=== PATIENT | female | born 1990 | race Caucasian/White ===

== ENCOUNTER → 2017-02-23 | Outpatient (CLI) | payer BC ==
--- NOTE | 2017-02-23 21:44 | REP ---
Clinical: Anatomical evaluation. Comparison: None . Findings: Examination demonstrates a single live intrauterine in variable presentation. motion is identified by technologist. Placenta is noted anteriorly and grade zero without evidence for placenta previa or abruption. Placental tip 2.6 cm from the internal os. A synechia noted along the right side of the uterus. Amniotic fluid volume is normal. Cervix measures 5.5 cm in length and appears closed. No evidence for nuchal cord. Gestational age by LMP 20 weeks 0 days with DAVIDA 07/13/2017 . Gestational age by current measurements 20 weeks 0 days with DAVIDA 07/13/2017 . FHR equals 147 beats per minute. BPD 4.5 cm 19 weeks 4 days HC 17.1 cm 19 weeks 5-day AC 15.2 cm 20 weeks 3 days FL 3.2 cm 20 weeks 0 days HL 3.1 cm 20 weeks 2 days HC/AC ratio 1.13 Estimated weight 335 grams ( 52nd percentile). Anatomical assessment demonstrates normal structures including cranium, choroid plexus, cavum, cerebellum/posterior fossa, diaphragm, stomach, cord insertion/three-vessel cord, kidneys/bladder, spine, and upper extremities. Limited evaluation of the facial features, heart/ventricular outflow tracts, and lower extremities noted along with mild renal pelviectasis which is within normal range. Impression: 1. Single live intrauterine in variable presentation demonstrating appropriate interval growth. 2. Anatomical limitations as described above warrant reevaluation and follow-up. 3. A synechia is identified along the right side of the uterus. Signed by Cam Khalil MD 02/23/2017 09:35 P
== END ==
LOC: M RAD 15:56
PROVIDERS: ATTEND Nurse Practitioner Women's Health
DX: Z36 Encounter for antenatal screening of mother (principal); Z3A.20 20 weeks gestation of pregnancy

== ENCOUNTER → 2017-03-24 | Outpatient (CLI) | payer BC ==
--- NOTE | 2017-03-24 16:46 | REP ---
Clinical: Anatomical evaluation. Comparison: 02/23/2017 . Findings: Examination demonstrates a single live intrauterine in breech presentation. motion is identified by technologist. Placenta is noted show anteriorly and grade zero without evidence for placenta previa or abruption. Amniotic fluid volume is normal. A synechia along the right side of the uterus is again noted. Cervix measures 4.3 cm in length and appears closed. Nuchal cord cannot be excluded. Gestational age by LMP 24 weeks 1 day with DAVIDA 07/13/2017 . Gestational age by current measurements 24 weeks 1 day with DAVIDA 07/13/2017 . FHR equals 139 beats per minute. Estimated weight 718 grams ( 60th percentile). Anatomical assessment demonstrates normal structures including cranium, choroid plexus, cavum, cerebellum/posterior fossa, facial features, lungs, diaphragm, stomach, cord insertion/three-vessel cord, kidneys/bladder, and extremities. Limited evaluation of the heart/ventricular outflow tracts and spine noted. Impression: 1. Single live intrauterine in breech presentation demonstrating appropriate interval growth. 2. Uterine synechia again noted. 3. Nuchal cord cannot be excluded. 4. Anatomical limitations (heart/ventricular outflow tracts, spine) may warrant reevaluation and follow-up. Remainder of the anatomical assessment is complete and normal. Signed by Cam Khalil MD 03/24/2017 04:37 P
== END ==
LOC: M RAD 15:38
PROVIDERS: ATTEND Nurse Practitioner Women's Health
DX: Z36 Encounter for antenatal screening of mother (principal)

== ENCOUNTER → 2017-04-20 | Outpatient (CLI) | payer BC ==
--- NOTE | 2017-04-21 06:19 | REP ---
Clinical: Anatomical evaluation. Comparison: 03/24/2017 . Findings: Examination demonstrates a single live intrauterine in cephalic presentation. motion is identified by technologist. Placenta is noted anteriorly and grade zero without evidence for placenta previa or abruption. Amniotic fluid volume is normal. Cervix measures 4.4 cm in length and appears closed. No evidence for nuchal cord. Gestational age by LMP 28 weeks 0 days with DAVIDA 07/13/2017 . Gestational age by current measurements 27 weeks 5 days with DAVIDA 07/15/2017. FHR equals 144 beats per minute. Amniotic fluid index equals 13.4 cm. Estimated weight 1119 grams ( 36th percentile). Anatomical assessment demonstrates normal structures including cranium, choroid plexus, cavum, cerebellum/posterior fossa, facial features, lungs, four-chamber heart/ left ventricular outflow tract, diaphragm, stomach, cord insertion/three-vessel cord, kidneys/bladder, spine. Impression: 1. Single live intrauterine in cephalic presentation demonstrating appropriate interval growth. 2. Right uterine synechia is again identified. 3. In conjunction with prior examination anatomical assessment is complete and normal. Signed by Cam Khalil MD 04/21/2017 06:10 A
== END ==
LOC: M RAD 15:44
PROVIDERS: ATTEND Nurse Practitioner Women's Health
DX: Z36 Encounter for antenatal screening of mother (principal); Z3A.27 27 weeks gestation of pregnancy

== ENCOUNTER → 2018-05-01 | Outpatient (REF) | payer BC, OTHER ==
[2018-05-02 12:47] LABS: CHLAMYDIA DNA AMPLIFICATION NEGATIVE (NEGATIVE); GC DNA AMPLIFICATION NEGATIVE (NEGATIVE)
== END ==
LOC: M LAB REF 16:43
DX: Z11.3 Encounter for screening for infections with a predominantly sexual mode of transmission (principal)
CPT/HCPCS: 87591